=== PATIENT | male | born 1965 | race Native Hawaiian/Other Pacific Islander ===

== ENCOUNTER 2016-09-01 08:42 | Emergency (ER) | payer OTHER ==
[~2016-09-01] VITALS: Ht 177.8 cm; Wt 99.8 kg
[2016-09-01 08:50] VITALS: TEMP 97.8
[2016-09-01 11:04] VITALS: BP 132/80
== END 2016-09-01 11:04 | disposition home or self-care (01) ==
LOC: ED 08:42
DX: N20.1 Calculus of ureter (principal)
CPT/HCPCS: 81000; 96360; 99284

== ENCOUNTER 2017-01-18 12:15 | Emergency (ER) | payer OTHER ==
[~2017-01-18] VITALS: Ht 182.9 cm; Wt 99.8 kg
[2017-01-18 12:20] VITALS: TEMP 97.5
[2017-01-18 14:45] LABS: PLATELET COUNT 368 K/uL (142-355)
[2017-01-18 14:50] LABS: POTASSIUM 3.7 mmol/L (3.6-5.2); SODIUM 138 mmol/L (136-145)
[2017-01-18 15:31] VITALS: BP 149/93
== END 2017-01-18 15:31 | disposition home or self-care (01) ==
LOC: ED 12:15
PROVIDERS: Specialist
DX: N23 Unspecified renal colic (principal)
CPT/HCPCS: 36415; 80053; 85027; 96365; 96374; 96375; 99284; J1170; J1885; J2405

== ENCOUNTER 2017-03-02 13:45 | Outpatient (CLI) | payer OTHER | END 2017-03-02 19:42 | disposition home or self-care (01) | LOC: RAD 13:45 | DX: R05 Cough (principal) ==

== ENCOUNTER 2017-03-11 09:07 | Observation (INO) | payer OTHER ==
[~2017-03-11] VITALS: Ht 180.3 cm; Wt 97.7 kg
[2017-03-11 10:29] VITALS: BP 129/90; TEMP 98.8; Ht 180.3 cm; Wt 97.7 kg
[2017-03-11 10:31] LABS: PLATELET COUNT 308 K/uL (142-355)
[2017-03-11] MEDS ORDERED: COZAAR25 MG PO (10:46)
[2017-03-11] MEDS ORDERED: GABA300C2 PO (10:46)
[2017-03-11] MEDS ORDERED: PANTOPRAZOLE 40MG TA PO (10:48)
[2017-03-11] MEDS ORDERED: ASPIRIN81 M2 (10:48)
[2017-03-11] MEDS ORDERED: CLOP75TA2 PO (10:48)
[2017-03-11] MEDS ORDERED: LIPITOR20 MG PO (10:49)
[2017-03-11 11:03] LABS: POTASSIUM 3.4 mmol/L (3.6-5.2)
[2017-03-11 12:00] VITALS: BP 129/90; TEMP 98.8
[2017-03-11 16:00] VITALS: BP 109/69; TEMP 98.8
[2017-03-11 20:22] VITALS: BP 118/63; TEMP 98.2
[2017-03-11 23:50] VITALS: BP 103/75; TEMP 98.2
[2017-03-12 04:00] VITALS: BP 112/67; TEMP 98.7
[2017-03-12 06:08] LABS: POTASSIUM 3.5 mmol/L (3.6-5.2)
[2017-03-12 07:58] VITALS: BP 125/76; TEMP 98.9
== END 2017-03-12 09:09 | disposition home or self-care (01) ==
LOC: MED/SURG 09:07
PROVIDERS: ADMIT Internal Medicine
DX: E86.0 Dehydration (principal); R11.2 Nausea with vomiting, unspecified; I25.10 Atherosclerotic heart disease of native coronary artery without angina pectoris; K21.9 Gastro-esophageal reflux disease without esophagitis
CPT/HCPCS: 36591; 80048; 80053; 82150; 82550; 83690; 84484; 85027; 93005; 96360; 96361; 96372; 99220; G0378; G0379; J3480; J3490

== ENCOUNTER 2017-08-10 08:09 | Outpatient (CLI) | payer OTHER ==
[~2017-08-10 08:09] MED LIST: ASPIRIN81 M2; CLOP75TA2 PO; COZAAR25 MG PO; GABA300C2 PO; LIPITOR20 MG PO; PANTOPRAZOLE 40MG TA PO
[2017-08-10 09:00] LABS: PLATELET COUNT 321 K/uL (142-355)
== END 2017-08-10 19:41 | disposition home or self-care (01) ==
LOC: LABW 08:09
PROVIDERS: Internal Medicine
DX: I10 Essential (primary) hypertension (principal); Z12.5 Encounter for screening for malignant neoplasm of prostate
CPT/HCPCS: 36415; 80053; 80061; 81000; 84153; 84443; 85027

== ENCOUNTER 2017-08-31 14:17 | Emergency (ER) | payer OTHER ==
[~2017-08-31] VITALS: Ht 180.3 cm; Wt 101.6 kg
[2017-08-31 15:08] VITALS: BP 163/97; TEMP 97.9
== END 2017-08-31 15:11 | disposition home or self-care (01) ==
LOC: ED 14:17
PROC: 0HQ1XZZ Repair Face Skin, External Approach (ICD-10-PCS; principal; 2017-08-31)
DX: S01.111A Laceration without foreign body of right eyelid and periocular area, initial encounter (principal); W22.8XXA Striking against or struck by other objects, initial encounter; Y92.239 Unspecified place in hospital as the place of occurrence of the external cause
CPT/HCPCS: 99282

== ENCOUNTER 2017-09-05 22:20 | Emergency (ER) | payer OTHER ==
[~2017-09-05] VITALS: Ht 180.3 cm; Wt 99.8 kg
[2017-09-06 01:51] VITALS: BP 142/80; TEMP 98.8
== END 2017-09-06 01:50 | disposition home or self-care (01) ==
LOC: ED 22:20
PROC: 2W3KX1Z Immobilization of Left Finger using Splint (ICD-10-PCS; principal; 2017-09-05)
DX: S63.283A Dislocation of proximal interphalangeal joint of left middle finger, initial encounter (principal); W19.XXXA Unspecified fall, initial encounter
CPT/HCPCS: 96372; 99283; J2175; J2360

== ENCOUNTER 2017-10-05 10:34 | Outpatient (CLI) | payer OTHER | END 2017-10-05 20:40 | disposition home or self-care (01) | LOC: RAD 10:34 | DX: M79.642 Pain in left hand (principal) ==

== ENCOUNTER 2018-07-19 22:13 | Emergency (ER) | payer OTHER ==
[~2018-07-19] VITALS: Ht 180.3 cm; Wt 99.8 kg
[2018-07-20 03:30] VITALS: BP 158/94; TEMP 98.2
== END 2018-07-20 03:30 | disposition short-term general hospital (02) ==
LOC: ED 22:13
DX: S32.038A Other fracture of third lumbar vertebra, initial encounter for closed fracture (principal); S32.028A Other fracture of second lumbar vertebra, initial encounter for closed fracture; S32.018A Other fracture of first lumbar vertebra, initial encounter for closed fracture; W17.89XA Other fall from one level to another, initial encounter; Y93.H3 Activity, building and construction; Y92.018 Other place in single-family (private) house as the place of occurrence of the external cause
CPT/HCPCS: 81000; 96372; 96374; 96375; 96376; 99285; J1170; J1885; J2360; J2405

== ENCOUNTER 2018-11-28 09:39 | Emergency (ER) | payer OTHER ==
[~2018-11-28] VITALS: Ht 180.3 cm; Wt 104.3 kg
[2018-11-28 09:49] VITALS: TEMP 97.7
[2018-11-28 10:33] LABS: PLATELET COUNT 274 K/uL (142-355)
[2018-11-28 10:47] LABS: POTASSIUM 3.7 mmol/L (3.6-5.2)
[2018-11-28 10:51] LABS: PARTIAL THROMBOPLASTIN TIME 24.8 SECONDS (24.5-33.6)
[2018-11-28 13:46] VITALS: BP 134/84
== END 2018-11-28 13:46 | disposition home or self-care (01) ==
LOC: ED 09:39
PROVIDERS: Hospitalist
DX: N20.0 Calculus of kidney (principal)
CPT/HCPCS: 36415; 80053; 81000; 82150; 83690; 85027; 85610; 85730; 96360; 96375; 99284; J1170; J1885; J2405

== ENCOUNTER 2018-11-29 15:05 | Outpatient (CLI) | payer OTHER | END 2018-11-29 20:02 | disposition home or self-care (01) | LOC: RAD 15:05 | DX: N20.0 Calculus of kidney (principal) ==

== ENCOUNTER 2019-02-10 08:04 | Outpatient (CLI) | payer OTHER ==
[2019-02-10 08:19] LABS: PLATELET COUNT 323 K/uL (142-355)
[2019-02-10 08:42] LABS: POTASSIUM 4.2 mmol/L (3.6-5.2)
== END 2019-02-10 19:39 | disposition home or self-care (01) ==
LOC: LABW 08:04
PROVIDERS: Internal Medicine
DX: Z02.83 Encounter for blood-alcohol and blood-drug test (principal); I25.10 Atherosclerotic heart disease of native coronary artery without angina pectoris; I10 Essential (primary) hypertension; N40.0 Benign prostatic hyperplasia without lower urinary tract symptoms
CPT/HCPCS: 36415; 80053; 80061; 81000; 84153; 84439; 84443; 85027

== ENCOUNTER 2019-06-23 08:37 | Outpatient (CLI) | payer OTHER | END 2019-06-23 19:00 | disposition home or self-care (01) | LOC: RAD 08:37 | DX: N20.0 Calculus of kidney (principal) ==

== ENCOUNTER 2019-09-07 06:16 | Outpatient (CLI) | payer OTHER ==
[2019-09-07 06:44] LABS: PLATELET COUNT 298 K/uL (142-355)
[2019-09-07 06:56] LABS: POTASSIUM 3.7 mmol/L (3.6-5.2)
== END 2019-09-07 19:42 | disposition home or self-care (01) ==
LOC: LABW 06:16
PROVIDERS: Internal Medicine
DX: I25.10 Atherosclerotic heart disease of native coronary artery without angina pectoris (principal); I10 Essential (primary) hypertension
CPT/HCPCS: 36415; 80053; 80061; 81000; 85027

== ENCOUNTER 2020-02-08 17:42 | Emergency (ER) | payer OTHER ==
[~2020-02-08] VITALS: Ht 180.3 cm; Wt 103.0 kg
[2020-02-08 23:05] VITALS: BP 157/96; TEMP 98
== END 2020-02-08 23:05 | disposition home or self-care (01) ==
LOC: ED 17:42
PROC: 2W3LX1Z Immobilization of Right Lower Extremity using Splint (ICD-10-PCS; principal; 2020-02-08)
DX: M70.51 Other bursitis of knee, right knee (principal); M17.11 Unilateral primary osteoarthritis, right knee; X50.9XXA Other and unspecified overexertion or strenuous movements or postures, initial encounter; Y92.89 Other specified places as the place of occurrence of the external cause
CPT/HCPCS: 96372; 99283; J1100; J1885

== ENCOUNTER 2020-02-17 08:43 | Outpatient (CLI) | payer OTHER | END 2020-02-17 19:00 | disposition home or self-care (01) | LOC: MRI 08:43 | PROVIDERS: ATTEND Internal Medicine | DX: M25.561 Pain in right knee (principal) | CPT/HCPCS: 36415; 82565; 84520; A9576 ==

== ENCOUNTER 2020-05-30 07:33 | Outpatient (CLI) | payer OTHER ==
[2020-05-30 08:27] LABS: PLATELET COUNT 282 K/uL (142-355)
== END 2020-05-30 21:12 | disposition home or self-care (01) ==
LOC: LABW 07:33
PROVIDERS: ATTEND Internal Medicine
DX: Z12.5 Encounter for screening for malignant neoplasm of prostate (principal); I10 Essential (primary) hypertension; E78.49 Other hyperlipidemia; G47.00 Insomnia, unspecified
CPT/HCPCS: 36415; 80053; 80061; 81000; 84153; 84439; 84443; 85027

== ENCOUNTER 2020-09-13 08:04 | Outpatient (CLI) | payer OTHER | END 2020-09-13 20:19 | disposition home or self-care (01) | LOC: RAD 08:04 | PROVIDERS: ATTEND Internal Medicine | DX: M72.2 Plantar fascial fibromatosis (principal) ==

== ENCOUNTER 2020-10-14 06:40 | Emergency (ER) | payer OTHER ==
[~2020-10-14] VITALS: Ht 180.3 cm; Wt 99.8 kg
[2020-10-14 07:22] LABS: PLATELET COUNT 288 K/uL (142-355)
[2020-10-14 07:34] LABS: POTASSIUM 4.3 mmol/L (3.6-5.2)
[2020-10-14 08:57] VITALS: BP 132/85; TEMP 97.2
== END 2020-10-14 08:57 | disposition home or self-care (01) ==
LOC: ED 06:40
PROVIDERS: Emergency Medicine
DX: N20.0 Calculus of kidney (principal); Z87.442 Personal history of urinary calculi
CPT/HCPCS: 80048; 81000; 85027; 96374; 96375; 99284; J1885; J2175; J2405

== ENCOUNTER 2020-11-20 00:16 | Emergency (ER) | payer OTHER ==
[~2020-11-20] VITALS: Ht 180.3 cm; Wt 102.1 kg
[2020-11-20 01:05] LABS: PLATELET COUNT 329 K/uL (142-355)
[2020-11-20 01:28] LABS: POTASSIUM 3.8 mmol/L (3.6-5.2)
[2020-11-20 02:22] VITALS: BP 138/65; TEMP 98.7
== END 2020-11-20 02:22 | disposition home or self-care (01) ==
LOC: ED 00:16
PROVIDERS: Emergency Medicine Emergency Medical Services
DX: N13.2 Hydronephrosis with renal and ureteral calculous obstruction (principal); Z87.442 Personal history of urinary calculi
CPT/HCPCS: 36415; 80048; 85027; 96360; 96361; 96375; 99284; J1170; J1885; J2405

== ENCOUNTER 2021-04-30 08:22 | Emergency (ER) | payer OTHER ==
[~2021-04-30] VITALS: Ht 180.3 cm; Wt 102.1 kg
[2021-04-30 09:23] LABS: PLATELET COUNT 284 K/uL (142-355)
[2021-04-30 09:28] LABS: POTASSIUM 3.7 mmol/L (3.6-5.2)
[2021-04-30 09:50] LABS: PARTIAL THROMBOPLASTIN TIME 24.7 SECONDS (24.5-33.6)
[2021-04-30 11:50] VITALS: BP 145/87; TEMP 98
== END 2021-04-30 11:50 | disposition short-term general hospital (02) ==
LOC: ED 08:22
PROVIDERS: Hospitalist
DX: R07.89 Other chest pain (principal); I25.10 Atherosclerotic heart disease of native coronary artery without angina pectoris; Z11.52 Encounter for screening for COVID-19; I10 Essential (primary) hypertension
CPT/HCPCS: 36415; 80053; 82550; 83880; 84484; 85027; 85610; 85730; 87635; 93005; 96374; 96375; 99284; 99285; J2270; J2405; U0003

== ENCOUNTER 2021-06-18 07:25 | Outpatient (CLI) | payer OTHER | END 2021-06-18 18:54 | disposition home or self-care (01) | LOC: LABW 07:25 | PROVIDERS: ATTEND Internal Medicine | DX: R73.9 Hyperglycemia, unspecified (principal) | CPT/HCPCS: 36415; 82951; 82952; 83036 ==

== ENCOUNTER 2021-07-18 13:22 | Emergency (ER) | payer OTHER ==
[~2021-07-18] VITALS: Ht 180.3 cm; Wt 102.1 kg
[2021-07-18 14:33] LABS: PLATELET COUNT 295 K/uL (142-355)
[2021-07-18 14:43] LABS: POTASSIUM 3.9 mmol/L (3.6-5.2)
[2021-07-18] MEDS ORDERED: CIPR500T PO (15:17)
[2021-07-18 15:35] VITALS: BP 127/79; TEMP 97.1
== END 2021-07-18 15:35 | disposition home or self-care (01) ==
LOC: ED 13:22
PROVIDERS: Emergency Medicine
DX: Z87.442 Personal history of urinary calculi (principal); N39.0 Urinary tract infection, site not specified; Z98.890 Other specified postprocedural states
CPT/HCPCS: 36415; 80048; 81000; 85027; 87088; 96374; 96375; 99284; J1885; J2405